=== PATIENT | female | born 1960 | race Caucasian/White ===

== ENCOUNTER → 2018-01-30 | Day surgery (SDC) | payer MEDICARE, OTHER ==
[~2018-01-30] MED LIST: ACETAMINOPHEN 1000 MG/100 ML 100 ML IV ONE; CEFTRIAXONE SOD 1 GM VIAL ONE; CELEXA40 MG PO; CIPRO500 MG PO; DEXAMETHASONE SOD PHOS INJ 4 MG/ML VIAL ONE; DIPHENHYDRAMINE HCL INJ 50 MG/ML VIAL ONE; ESTRACE2 M1 PO; FENTANYL CITRATE/PF 100MCG/2 ML INJ ONE; FERROUS SULFAT325 M1 PO; HYDROMORPHONE 1MG/1ML INJ ONE; IOPAMIDOL 300MG/ML 50ML INFUS..BTL IV ONE; LIDOCAINE HCL 2% LOCAL INJ 5 ML SDV VIAL INJ ONE; MIDAZOLAM HCL 2 MG/2 ML VIAL ONE; MORPHINE SULFATE INJ 10 MG/ML ONE; ONDANSETRON HCL INJ 2 MG/ML VIAL ONE; PROPOFOL IV EMULSION 10 MG/ML 20 ML VIAL ONE; SEVOFLURANE INHAL SOLN 250 ML PEN BTL ONE; Z DIVALPROEX SOD MT; Z.0.CALCIUM600 MG PO; Z.0.CENTRUM SILVER1 PO; Z.0.CITALOPRAM HBR20 MT; Z.0.GEODON20 MG MT; Z.0.KEPPRA1000 MG MT; Z.0.LEVOTHYROXINE25 PO; Z.0.SEROQUEL25 MG PO; [UNRECOGNIZED DRUG - OTHER] PO; [UNRECOGNIZED DRUG - OTHER] PO
--- NOTE | 2018-01-30 13:03 | Diagnostic Imaging Report ---
PROCEDURE:X-RAY ABDOMEN - KUB COMPARISON:CT Abdomen/Pelvis 11/23/08. INDICATIONS:PREOPERATIVE XRAY FOR UROLOGY SURGERY FINDINGS: A 4 mm calcification projects over the right mid pole kidney and 6 mm calcification projects over the left mid pole kidney. A 1.1 cm calcification projects near the left mid ureter. Multiple phleboliths are present in the pelvis. There is a non-obstructed bowel-gas pattern. There are no acute osseous abnormalities. The lung bases are clear. CONCLUSION: A 4 mm right renal and 6 mm left renal stone. A 1.1 cm calcification projects near the expected location of the left mid ureter. Dictated by: LINH KIRK M.D. on 01/30/2018 at 13:09 Electronically approved by: LINH KIRK M.D. on 01/30/2018 at 13:09
--- NOTE | 2018-01-31 08:54 | Operative Report ---
DATE OF PROCEDURE: January 30, 2018 PREOPERATIVE DIAGNOSIS: Left renal calculus. POSTOPERATIVE DIAGNOSIS: Left ureteral calculus. PROCEDURES 1. Cystourethroscopy with left ureteral catheterization and left retrograde pyelogram (separate procedure done for kidney stone). 2. Staged left-sided shock wave lithotripsy (entirely separate procedure for left ureteral calculus). 3. Supervision of fluoroscopy. 4. Interpretation of retrograde pyelography. ANESTHESIA: General. ESTIMATED BLOOD LOSS: Minimal. COMPLICATIONS: None. INDICATIONS: Ms. Tinsley is a 57-year-old female who presented to an outside emergency room with originally left-sided flank pain. She was diagnosed with a left 8 x 9 mm renal calculus. She and I had long discussion in the clinic regarding the alternatives, risks and benefits including doing nothing, shock wave lithotripsy, ureteroscopy, percutaneous surgery, open surgery. She voiced understanding of the options, alternatives, risks and benefits and she elected to proceed. PROCEDURE IN DETAIL: After informed consent was obtained, the patient was taken to the operative suite. She was placed on lithotripsy table. She underwent general anesthesia by anesthesia service. Placed in the dorsal lithotomy position and sterilely prepped and draped in the standard fashion for cystoscopy. The patient was set supine on the lithotripsy table prior to the procedure. An attempt was made to localize the stone. It was nothing seen over the renal shaft. There was a stone seen in what appeared to be the proximal ureter. This rotated slightly anteriorly. Even though this is an indicated procedure from outside, I spoke with the patient's and brought in a need for cystoscopy and retrograde pyelogram as the patient has an iodine allergy. He gave verbal consent. We proceeded with cystoscopy and left retrograde pyelogram to confirm the calcification seen was indeed in the proximal ureteral calculus. At this time, the stone was localized in the X, Y, and Z planes. A total of 3000 shocks delivered to the stone, maximum power setting of 6. There was good fragmentation seen. The patient was awakened from anesthesia and transferred to the recovery room. No untoward effects noted. SUPERVISION OF FLUOROSCOPY AND INTERPRETATION OF RETROGRADE PYELOGRAPHY: I was present throughout the entire procedure and supervised the use of fluoroscopy as no radiologist was present. Attention was turned to the left ureter, which was catheterized. Retrograde pyelogram was performed revealing proximal ureteral calculus approximately 8 x 9 mm. Job#: [id number] GE
== END | disposition home or self-care (01) ==
LOC: OR 11:58
PROVIDERS: ATTEND Urology
DX: N20.1 Calculus of ureter (principal); R35.1 Nocturia; Z91.041 Radiographic dye allergy status; G40.909 Epilepsy, unspecified, not intractable, without status epilepticus; E03.9 Hypothyroidism, unspecified; Z01.810 Encounter for preprocedural cardiovascular examination; Z84.1 Family history of disorders of kidney and ureter
CPT/HCPCS: 50590; 74018; 93005; J0696; J1100; J1170; J1200; J2001; J2250; J2270; J2405; Q9967

== ENCOUNTER 2018-08-19 15:26 | Emergency (ER) | payer MEDICARE, OTHER ==
[~2018-08-19] VITALS: Ht 172.7 cm; Wt 89.4 kg
[~2018-08-19 15:26] MED LIST changes: -ACETAMINOPHEN 1000 MG/100 ML 100 ML IV ONE; -CEFTRIAXONE SOD 1 GM VIAL ONE; -DEXAMETHASONE SOD PHOS INJ 4 MG/ML VIAL ONE; -DIPHENHYDRAMINE HCL INJ 50 MG/ML VIAL ONE; -FENTANYL CITRATE/PF 100MCG/2 ML INJ ONE; -HYDROMORPHONE 1MG/1ML INJ ONE; -IOPAMIDOL 300MG/ML 50ML INFUS..BTL IV ONE; -LIDOCAINE HCL 2% LOCAL INJ 5 ML SDV VIAL INJ ONE; -MIDAZOLAM HCL 2 MG/2 ML VIAL ONE; -MORPHINE SULFATE INJ 10 MG/ML ONE; -ONDANSETRON HCL INJ 2 MG/ML VIAL ONE; -PROPOFOL IV EMULSION 10 MG/ML 20 ML VIAL ONE; -SEVOFLURANE INHAL SOLN 250 ML PEN BTL ONE
--- OUTSIDE RECORDS SUMMARY | 2018-08-19 15:29 | XMS REPORT | Continuity of Care Document ---
Author Author [facility] Interface Address Unknown Phone Unavailable Problems Problem Status Onset Date Classification Date Reported Comments Source Cervical radiculopathy<sup>1</sup> Active 12/10/2013 Problem 01/09/2018 Data migrated from [employer] on 07/12/15. The patient had neck extension worsening pain radiating into the right arm with numbness refractory to NSAIDs, MRs and cESIs. She has not done PT yet. Erick ginally documented as Cervical radiculopathy. [facility] Lumbar radiculopathy<sup>2</sup> Active 12/10/2013 Problem 01/09/2018 Data migrated from [employer] on 07/12/15. The patient had radicular lumbar pain on the left with numbness refractory to NSAIDs, MRs and lESIs. She has not done PT yet. Originally documented as Lumbar radiculopathy. [facility] Prolapse of mitral valve Resolved Problem 01/09/2018 [facility] Depression Resolved Problem 01/09/2018 [facility] Medications Medication Details Route Status Patient Instructions Ordering Provider Order Date Source zonisamide 100 mg oral capsule 400 mg=4 cap, PO, Daily, # 360 cap, 3 Refill(s), Pharmacy: [facility] [id number] Active 10/03/2017 [facility] Allergies, Adverse Reactions, Alerts Substance Category Reaction Severity Reaction type Status Date Reported Comments Source iodine<sup>1</sup> Assertion Drug allergy Active 01/02/2013 Data migrated from [employer] on 07/10/16. Originally documented as Iodine. [facility] morphine Assertion Drug allergy Active [facility] albuterol Assertion Drug allergy Active [facility] povidone iodine topical Assertion Drug allergy Active [facility] Zyrtec Assertion Drug allergy Active [facility] Immunizations Immunization Date Given Site Status Last Updated Comments Source Results Order Name Results Value Reference Range Date Interpretation Comments Source Vital Signs Vital Sign Value Date Comments Source BMI Calculated 24.86 10/03/2017 [facility] Height 172.72 cm 10/03/2017 [facility] Weight 74.148 10/03/2017 [facility] Heart Rate 73 10/03/2017 [facility] Systolic (mm Hg) 126 10/03/2017 [facility] Diastolic (mm Hg) 83 10/03/2017 [facility] Encounters Location Location Details Encounter Type Encounter Number Reason For Visit Attending Provider ADM Date DC Date Status Source Outpatient [id number] [facility] 08/17/2016 Active [facility] Outpatient [id number] [facility] 08/17/2016 [facility] Outpatient [id number] [facility] 10/03/2017 [facility] Neurology [facility] Outpatient [id number] [facility] 10/03/2017 10/04/2017 [facility] [id number] [facility] 10/03/2018 Active [facility] Procedures Procedure Code Date Perfomer Comments Source Surgical procedure on cervical spine [id number] 06/25/2014 [facility] Hysterectomy [id number] [facility] Insertion of vagus nerve stimulator [id number] [facility] Knee replacement [id number] [facility]
--- OUTSIDE RECORDS SUMMARY | 2018-08-19 15:29 | XMS REPORT ---
Author [facility] Address Unknown Phone Unavailable Care Team Providers Care Box Fabricator Name Role Phone IAN VILLEDA Unavailable Unavailable Payers Payer Name Policy Type Policy Number Effective Date Expiration Date Problems This patient has no known problems. Allergies, Adverse Reactions, Alerts Allergy Name Allergy Type Status Severity Reaction(s) Onset Date Inactive Date Treating Clinician Comments iodine DA Active U 2018-04-25 00:00:00 codeine DA Active U 2018-04-25 00:00:00 cetirizine HCl DA Active U 2018-04-25 00:00:00 albuterol DA Active U 2018-04-25 00:00:00 cetirizine HCl DA Active U 2018-01-16 00:00:00 iodine DA Active U 2018-01-16 00:00:00 albuterol DA Active U 2018-01-16 00:00:00 Medications This patient has no known medications. Results Test Description Test Time Test Comments Text Results Atomic Results Result Comments ABDOMEN-1VIEW (KUB) 2018-01-30 13:09:[address] [address] Patient Name: EDWARD LÓPEZ MR #: [id number] : 1960 Age/Sex: 57/F Req #: [id number] Adm Physician: Ordered by: IAN VILLEDA MD Report #: [id number] Location: OR Room/Bed: Procedure: [id number] DX/ABDOMEN-1VIEW (KUB) Exam Date: 01/30/18 Exam Time: 1134 REPORT STATUS: Signed PROCEDURE: X-RAY ABDOMEN - KUB COMPARISON: CT Abdomen/Pelvis 11/23/08. INDICATIONS: PREOPERATIVE XRAY FOR UROLOGY SURGERY FINDINGS: A 4 mm calcification projects over the right mid pole kidney and 6 mm calcification projects over the left mid pole kidney. A 1.1 cm calcification projects near the left mid ureter. Multiple phleboliths are present in the pelvis. There is a non-obstructed bowel-gas pattern. There are no acute osseous abnormalities. The lung bases are clear. CONCLUSION: A 4 mm right renal and 6 mm left renal stone. A 1.1 cm calcification projects near the expected location of the left mid ureter. Dictated by: LINH KIRK M.D. on 01/30/2018 at 13:09 Electronically approved by: LINH KIRK M.D. on 01/30/2018 at 13:09 Dictated By: LINH KIRK MD [id number] Transcribed By: ANITHA on 01/30/18 1309 COPY TO: IAN VILLEDA MD
[2018-08-19] MEDS ORDERED: ONDANSETRON HCL INJ 2MG/ML 2ML 2 MG/ML VIAL IV ONE (15:33)
[2018-08-19] MEDS ORDERED: HYDROMORPHONE 1MG/1ML INJ IV STA (15:33)
[2018-08-19] MEDS ORDERED: HYDROMORPHONE 2MG/ML 2 MG/ML ML IV ONE (15:45)
[2018-08-19 16:41] LABS: BASOPHILS # (AUTO) 0.1 (0.0-0.1); BASOPHILS % 1.1 % (0.0-1.0); EOSINOPHILS # (AUTO) 0.2 (0.0-0.4); EOSINOPHILS % 3.4 % (0.0-6.0); HEMATOCRIT 41.4 % (34.2-44.1); HEMOGLOBIN 13.4 g/dL (12.0-16.0); LYMPHOCYTES # (AUTO) 2.2 (1.0-3.2); LYMPHOCYTES % 36.7 % (18.0-39.1); MEAN CORPUSCULAR HEMOGLOBIN 28.9 pg (28-32); MEAN CORPUSCULAR HGB CONC 32.4 g/dL (31-35); MEAN CORPUSCULAR VOLUME 89.4 fL (81-99); MONOCYTES # (AUTO) 0.3 (0.2-0.8); MONOCYTES % 4.7 % (4.4-11.3); NEUTROPHILS # (AUTO) 3.3 (2.1-6.9); NEUTROPHILS % 53.8 % (38.7-80.0); PLATELET COUNT 232 x10e3/uL (140-360); RED BLOOD COUNT 4.63 x10e6/uL (3.6-5.1); RED CELL DISTRIBUTION WIDTH 13.3 % (11.7-14.4)
[2018-08-19] MEDS ORDERED: DIPHENHYDRAMINE HCL INJ 50 MG/ML VIAL IV ONE (16:45)
[2018-08-19 16:57] LABS: ANION GAP 11.6 mmol/L (8-16); BLOOD UREA NITROGEN 14 mg/dL (7-26); BUN/CREATININE RATIO 15 (6-25); CALCIUM 9.5 mg/dL (8.4-10.2); CARBON DIOXIDE 27 mmol/L (22-29); CHLORIDE 103 mmol/L (98-107); CREATININE, SERUM 0.94 mg/dL (0.57-1.11); EST GLOMERULAR FILTRATION RATE > 60 ML/MIN (60-); GLUCOSE 122 mg/dL (74-118); POTASSIUM 3.6 mmol/L (3.5-5.1); SODIUM 138 mmol/L (136-145)
[2018-08-19 17:05] LABS: BILIRUBIN,URINE NEGATIVE (NEGATIVE); CLARITY,URINE SL CLOUDY (CLEAR); COLOR,URINE YELLOW (YELLOW); KETONES,URINE NEGATIVE (NEGATIVE); LEUKOCYTE ESTERASE ,URINE TRACE (NEGATIVE); NITRITE,URINE NEGATIVE (NEGATIVE); PROTEIN,URINE DIPSTICK NEGATIVE (NEGATIVE); URINE UROBILINOGEN 0.2 mg/dL (0.2 - 1)
[2018-08-19 17:09] LABS: BACTERIA,URINE MODERATE /HPF; EPITHELIAL CELLS,URINE FEW /LPF; MUCUS,URINE MODERATE (RARE)
--- NOTE | 2018-08-19 18:51 | Diagnostic Imaging Report ---
EXAM: CT Abdomen and Pelvis WITHOUT contrast INDICATION: ^Stone Protocol ^[id number] ^1710 ^Y COMPARISON: None available. TECHNIQUE: Abdomen and pelvis were scanned utilizing a multidetector helical scanner from the lung base to the pubic symphysis without administration of IV contrast. Absence of intravenous contrast decreases sensitivity for detection of focal lesions and vascular pathology. Coronal and sagittal reformations were obtained. Routine protocol was performed. IV CONTRAST: None ORAL CONTRAST: Water COMPLICATIONS: None RADIATION DOSE: Total DLP: 305.60 mGy*cm Estimated effective dose: (DLP x 0.015 x size factor) mSv CTDIvol has been reviewed. It is below the limits set by the Radiation Protocol Committee (RPC). FINDINGS: LINES and TUBES: None. LOWER THORAX: Mild dependent atelectasis. HEPATOBILIARY: Unenhanced liver is unremarkable. No biliary ductal dilation. GALLBLADDER: No radio-opaque stones or sludge. No wall thickening. SPLEEN: No splenomegaly. PANCREAS: No focal masses or ductal dilatation. ADRENALS: No adrenal nodules KIDNEYS/URETERS: No hydronephrosis. No contour deforming renal lesion. Evaluation of renal parenchyma is limited without intravenous contrast. 5 mm right renal midpole calculus. GI TRACT: No abnormal distention, wall thickening, or evidence of bowel obstruction. Appendix is not clearly identified. There is however no fat stranding or adenopathy in the right lower quadrant to suggest appendicitis. PELVIC ORGANS/BLADDER: Hysterectomy. Bladder is decompressed. Pelvic phleboliths. LYMPH NODES: No lymphadenopathy. 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 No abdominal aortic aneurysm. PERITONEUM / RETROPERITONEUM: No free air or fluid. BONES: Unremarkable. SOFT TISSUES: Unremarkable. IMPRESSION: 1. 5 mm right renal midpole calculus. 2. No evidence of obstructive urolithiasis. Signed by: Dr. Kanu Lugo MD on 08/19/2018 6:47 PM
[2018-08-19 19:02] VITALS: BP 119/53
[2018-08-19] MEDS ORDERED: HYDROCODONE/APAP 10MG-325MG TAB PO ONE (19:30)
== END 2018-08-19 19:31 | disposition home or self-care (01) ==
LOC: ER 15:26
DX: N30.90 Cystitis, unspecified without hematuria (principal); R10.84 Generalized abdominal pain; Z87.442 Personal history of urinary calculi; G40.909 Epilepsy, unspecified, not intractable, without status epilepticus
CPT/HCPCS: 36415; 74176; 80048; 81001; 85025; 87086; 99284; J1170; J1200; J2405

== ENCOUNTER → 2018-09-04 | Day surgery (SDC) | payer MEDICARE, OTHER ==
[~2018-09-04] MED LIST changes: +ACETAMINOPHEN/CODEINE 300MG - 30MG TAB ONE; +CEFTRIAXONE SOD 1 GM/NS 50 ML 50 ML IV ONE; +DEXAMETHASONE SOD PHOS INJ 4 MG/ML VIAL ONE; +DIPHENHYDRAMINE HCL INJ 50 MG/ML VIAL ONE; +FENTANYL CITRATE/PF 100MCG/2 ML INJ ONE; +LIDOCAINE HCL 2% LOCAL INJ 5 ML SDV VIAL INJ ONE; +MIDAZOLAM HCL 2 MG/2 ML VIAL ONE; +MORPHINE SULFATE INJ 4 MG/ML INJ 1ML ONE; +ONDANSETRON HCL INJ 2MG/ML 2ML 2 MG/ML VIAL ONE; +PROPOFOL IV EMULSION 10 MG/ML 20 ML VIAL ONE; +SEVOFLURANE INHAL SOLN 250 ML PEN BTL ONE
--- NOTE | 2018-09-04 06:48 | Diagnostic Imaging Report ---
EXAM: ABDOMEN-1VIEW (KUB), DATE: 09/04/2018 12:00 AM INDICATION: Preop for kidney stone. COMPARISON: 05/04/2014. Correlation with CT abdomen dated 08/19/2018. FINDINGS: LINES/TUBES: None BOWEL PATTERN: No evidence for obstruction. Large volume of stool within the colon. SOFT TISSUES: Small rounded densities projected on the right upper quadrant most likely represent bowel contents. 7 mm oval density projected on the right flank may represent bowel content are the previously identified right renal calculus. Multiple small calcific densities projected on the pelvis suggestive of phleboliths. 2 mm calcific density projected on the left L5 transverse process. LUNG BASES: Clear. BONES: No acute findings. IMPRESSION: Previously described right renal calculus tentatively visualized on today's exam. Signed by: Dr. Foster Hayden M.D. on 09/04/2018 6:45 AM
[2018-09-04 09:30] VITALS: BP 145/77
--- NOTE | 2018-09-04 12:30 | Operative Report ---
DATE OF PROCEDURE: 09/04/2018 SURGEON: Haim Yousif MD PREOPERATIVE DIAGNOSIS: Right kidney stone. POSTOPERATIVE DIAGNOSIS: Right kidney stone. PROCEDURE: Staged right-sided shock wave lithotripsy. ANESTHESIA: General. ESTIMATED BLOOD LOSS: Minimal. COMPLICATIONS: None. INDICATIONS: Ms. Tinsley is a 58-year-old female with symptomatic kidney stone. She and I had a long discussion about the alternatives, risks and benefits of doing nothing, shock wave lithotripsy, ureteroscopy, percutaneous surgery or open surgery. She voiced understanding of the options, the alternatives, the risks and the benefits and she elected to proceed. PROCEDURE IN DETAIL: After informed consent was obtained, the patient was taken to the operative suite, placed supine on the operative table, underwent anesthesia by the Anesthesia Service. The stone was localized in the X, Y and Z planes. A total of 3000 shocks AT A setting of 6 were delivered to the stone. The patient tolerated the procedure well, was transferred to recovery room in excellent condition with no untoward effects noted. Haim Yousif MD ES/MODL /[id number] MTDEbonie
== END | disposition home or self-care (01) ==
LOC: OR 05:00
PROVIDERS: ATTEND Urology
DX: N20.0 Calculus of kidney (principal); R35.1 Nocturia; N39.0 Urinary tract infection, site not specified; N13.39 Other hydronephrosis; R32 Unspecified urinary incontinence; T19.1XXA Foreign body in bladder, initial encounter; G40.802 Other epilepsy, not intractable, without status epilepticus; I20.9 Angina pectoris, unspecified; I10 Essential (primary) hypertension; E03.9 Hypothyroidism, unspecified; I34.1 Nonrheumatic mitral (valve) prolapse; X58.XXXA Exposure to other specified factors, initial encounter; F32.9 Major depressive disorder, single episode, unspecified; Z88.6 Allergy status to analgesic agent; Z91.041 Radiographic dye allergy status; Z01.810 Encounter for preprocedural cardiovascular examination; Z96.652 Presence of left artificial knee joint; Z84.1 Family history of disorders of kidney and ureter
CPT/HCPCS: 50590; 74018; 93005; J0696; J1100; J1200; J2001; J2250; J2270; J2405; J2704

== ENCOUNTER → 2018-10-16 | Outpatient (CLI) | payer MEDICARE, OTHER ==
[~2018-10-16] MED LIST changes: -ACETAMINOPHEN/CODEINE 300MG - 30MG TAB ONE; -CEFTRIAXONE SOD 1 GM/NS 50 ML 50 ML IV ONE; -DEXAMETHASONE SOD PHOS INJ 4 MG/ML VIAL ONE; -DIPHENHYDRAMINE HCL INJ 50 MG/ML VIAL ONE; -FENTANYL CITRATE/PF 100MCG/2 ML INJ ONE; -LIDOCAINE HCL 2% LOCAL INJ 5 ML SDV VIAL INJ ONE; -MIDAZOLAM HCL 2 MG/2 ML VIAL ONE; -MORPHINE SULFATE INJ 4 MG/ML INJ 1ML ONE; -ONDANSETRON HCL INJ 2MG/ML 2ML 2 MG/ML VIAL ONE; -PROPOFOL IV EMULSION 10 MG/ML 20 ML VIAL ONE; -SEVOFLURANE INHAL SOLN 250 ML PEN BTL ONE
--- NOTE | 2018-10-16 12:34 | Diagnostic Imaging Report ---
EXAM: ABDOMEN- 2 views INDICATION: Renal calculus. COMPARISON: KUB 09/04/[address] abdomen/pelvis 08/19/2018. FINDINGS: Bowel gas partially obscures visualization of the kidney. Previously noted 7 mm calcification overlying the right kidney is not well seen. A 3 mm calcification adjacent to the left L5 transverse process corresponds to calcified phlebolith on prior CT. There are bilateral pelvic calcifications, corresponding to phleboliths. Nonobstructive bowel gas pattern. No acute bony abnormality. IMPRESSION: Bowel gas partially obscures visualization of the kidneys. Previously noted 7 mm right renal calcification is not well visualized. Signed by: Dr. Reji Gomez MD on 10/16/2018 12:31 PM
== END ==
LOC: RAD 11:46
PROVIDERS: ATTEND Urology
DX: N20.0 Calculus of kidney (principal)
CPT/HCPCS: 74018